=== PATIENT | female | born 1940 | race Caucasian/White ===

== ENCOUNTER 2023-08-11 11:59 | Outpatient (REF) | payer SELFPAY ==
[2023-08-11 12:12] LABS: Abs Immature Grans 0.02 10^3/uL (0.0-0.06); Absolute Basophil Count 0.03 10^3/uL (0.0-0.2); Absolute Eosinophil Count 0.22 10^3/uL (0.0-0.7); Absolute Lymphocyte Count 1.12 10^3/uL (1.2-3.4); Absolute Monocyte Count 0.45 10^3/uL (0.1-0.8); Absolute Neutrophil Count 4.46 10^3/uL (1.2-6.7); Basophils % 0.5; Eosinophils % 3.5; HCT 26.1 % (36.0-46.0); HGB 8.4 g/dL (11.2-15.7); Immature Grans % 0.3; Lymphocytes % 17.8; MCH 30.2 pg (27.0-33.0); MCHC 32.2 % (32.0-36.0); MCV 94 fL (80-95); Monocytes % 7.1; Neutrophils % 70.8; Platelet Count 379 10^3/uL (130-400); RBC 2.78 10^6/uL (3.93-5.22); RDW 14.2 % (11.7-14.6); RDW-SD 47.9 fL
[2023-08-11 12:46] LABS: ALT 18 U/L (14-59); AST 19 U/L (15-37); Albumin 2.2 g/dL (3.4-5.0); Alkaline Phosphatase 94 U/L (46-116); Anion Gap 9.3 mmol/L (3-11); BUN 17 mg/dL (7-18); Bilirubin, Total 0.7 mg/dL (0.2-1.0); CO2 26.7 mmol/L (21.0-32.0); Calcium 8.6 mg/dL (8.5-10.1); Chloride 109 mmol/L (98-107); Glucose 111 mg/dL (74-106); Magnesium 1.8 mg/dL (1.8-2.4); Potassium 4.1 mmol/L (3.5-5.1); Sodium 145 mmol/L (136-145)
== END 2023-08-11 12:00 | disposition home or self-care (01) ==
LOC: LBN 11:59
PROVIDERS: PCP Family Medicine; Visit Provider Family Medicine
DX: N18.9 Chronic kidney disease, unspecified (principal); I10 Essential (primary) hypertension; R79.89 Other specified abnormal findings of blood chemistry
CPT/HCPCS: 80053; 83735; 85025

== ENCOUNTER 2023-08-26 09:14 | Inpatient (IN) | payer MEDICARE, SELFPAY ==
[2023-08-26] VITALS (44 sets, daily range): BP systolic 110–245; BP diastolic 49–108; PULSE 63–116; RESP 12–25; TEMP 36.9–37.4; O2SAT 91–98
--- NOTE | 2023-08-26 08:45 | DI.CT_ITS ---
Exam(s) CT HEAD - STROKE PROTOCOL EXAM: CT HEAD - STROKE PROTOCOL CLINICAL HISTORY: Altered mental status. TECHNIQUE: Imaging Protocol: Axial computed tomography images with coronal and sagittal reformatted images were created and reviewed COMPARISON: No exams were available for comparison FINDINGS: Ventricles and Extra axial spaces: Normal in size and morphology for the patient's age. Hemorrhage: None. Cerebral parenchyma: There is a large right MCA distribution infarct present. There is mild mass eff ect on the right lateral ventricle. There is effacement of the sulci predominantly involving the rig ht parietal lobe. There is no midline shift. Midline shift: None. Brainstem/Cerebellum: Normal. Calvarium: Normal. Visualized Paranasal sinuses/Mastoids: Clear. Soft Tissues: Unremarkable. IMPRESSION: 1. There is a large right MCA distribution infarct with mass effect on the left right lateral ventric le and effacement of the sulci predominantly in the right parietal lobe. 2. Findings were discussed with the Ibeth Jarvis at 9:28 a.m. on 08/26/2023. RADIATION DOSE DELIVERED: Total DLP DATA REPOSITORY: All CT scans at this facility are submitted to the National Radiology Data Registry (NRDR) Dose Index Registry (DIR) with the [employer] (ACR). RADIATION OPTIMIZATION: All CT scans at this facility use at least one of these dose optimization te chniques: automated exposure control; mA and/or kV adjustment per patient size (includes targeted exa ms where dose is matched to clinical indication); or iterative reconstruction.
--- NOTE | 2023-08-26 08:45 | RT.EKG_ITS ---
APPROVED REPORT Exam: Resting ECG Reason for Exam: CVA, AMS Patient Location: E HR:88 bpm ECG Measurements Heart Rate 88 AXIS NE [id number] P [id number] QRSd 90 QRS 21 QT 390 T -64 QTc 472 Conclusion Atrial fibrillation...V-rate 65-105, irreg A-activity Consider anteroseptal infarct...Q >30mS, dimin R, V1-V2 Nonspecific repol abnormality, diffuse leads...ST dep, T flat/neg, ant/lat/inf Narrow complex rate controlled atrial fibrillation rate of 88. Normal axis. QTc within normal limit s. Left lateral ST segment depressions. No ST segment elevations. T wave flattening in aVL and inv ersion in lead III. No acute injury pattern. No prior for comparison.
--- NOTE | 2023-08-26 08:53 | W.EDPROG ---
Date of service: 08/26/23 Time of Service: 08:53 Medical Decision Making I saw this patient in conjunction with her advanced practice provider. Please see her note for complete details. In brief this is an 83 full code female with history of atrial fibrillation previously on warfarin via paramedics in the setting of acute encephalopathy. Patient was reportedly found minimally responsive this morning. She was last seen in her usual state of health last night. She is markedly hypertensive into the 200s. She has a right gaze deviation concerning for CVA for which patient will be taken emergently for CT head. GCS 9: E 2, V3, M4. Patient was normothermic on rectal temp and nontachycardic. Her fingerstick blood glucose was within normal limits. 9:30 AM Radiology noted large right MCA CVA. I attempted to call the patient's but had no answer. I left a message asking him to call the ED. I called the patient's granddaughter Shaneka: [phone]. I advised her of the patient's large stroke. She confirmed full code. She will come up within 30 minutes. I reassessed the patient. She was protecting her airway. Will defer intubation at this point in time. Given last well last night patient is not a candidate for tPA. No tonic-clonic activity to suggest benefit from EEG. 10:36 AM After receiving verbal consent from patient's granddaughter I performed rapid sequence intubation which patient tolerated well under single first-pass success. Propofol drip hung for postintubation sedation. 12:23 PM I spoke with the patient's granddaughter Mikie and the patient's son at bedside. They requested terminal extubation and that the patient be transitioned to NUTRITION SERVICES MANAGER NUTRITION SERVICES MANAGER. We have paged palliative care. Will reach out to the hospitalist team to have the patient accepted locally and coordinate with respiratory therapy is to timing for extubation and medications for comfort measures only. I will order a scopolamine patch. 1:15 PM I spoke with Dr. Little from palliative care who requested a morphine drip which I ordered at 0.5 mg/h. I completed a terminal extubation and change the patient's CODE STATUS to DNI DNR. I updated the patient's son at bedside. Patient tolerated extubation well following 2 mg of morphine and a scopolamine patch. Patient admitted to [facility]. Quality:SDOH Health Related Social Needs: No Data to Display Procedures Intubation Time out performed: Yes sedative: Etomidate Mg Given: 26 paralytic: Succinylcholine Mg Given: 130 Laryngoscope: fiberoptic video scope (Fiberoptic GlideScope) Assist Device Used: fiberoptic device ET Tube Size: 7 ET Tube Uncuffed: Yes Tube Secured Depth (cm): 21 Tube Secured Location: teeth Tube Placement Confirmation: visualized tube passing through cords, equal breath sounds bilaterally, no breath sounds over epigastrum and confirmation by capnometry Patient Tolerated Procedure: well Intubation Complications: none Additional Comments: Postintubation chest x-ray ordered. Succinylcholine used in order to monitor neuroexam. Critical Care Time Critical Care Time Critical Care Time: Yes Total Critical Care Time: 45 Attestation: Bedside management of acute CVA and consultation with consultants and interpretation of chest x-rays Discharge Plan Disposition Patient Disposition: Admit to [facility] Condition: Serious Discharge Details Clinical Impression: Acute CVA (cerebrovascular accident), Altered mental state, Pneumonia Admit Date/Time: 08/26/23 13:28 Admit Provider: Ok Calloway Attending Provider: Ok Calloway Primary Care Provider: Cortes Benitez ED Provider: Ibeth Jarvis Discharge Data Discharge Date/Time-TO BE ENTERED AT DEPARTURE: 08/26/23 14:26
--- NOTE | 2023-08-26 08:54 | W.ED.GENAD ---
Discharge Plan Disposition Patient Disposition: Admit to [facility] Condition: Serious Discharge Details Clinical Impression: Acute CVA (cerebrovascular accident), Altered mental state, Pneumonia Admit Date/Time: 08/26/23 13:28 Admit Provider: Ok Calloway Attending Provider: Ok Calloway Primary Care Provider: Cortes Benitez ED Provider: Ibeth Jarvis Discharge Data Discharge Date/Time-TO BE ENTERED AT DEPARTURE: 08/26/23 14:26 HPI General Mode of arrival: EMS. Date/Time Provider Initiated Documentation: 08/26/23 09:18. Limitations to Documentation: altered mental status. Information obtained by: EMS. HPI Narrative: 83-year-old female presents to the ER [facility] with a chief complaint of altered mental status. Report is that patient was found this morning with a right word gaze, altered mental status and decreased responsiveness from her baseline. She does have a history of chronic dementia. She is only using in the right side of her body. She normally does use both sides of her extremities. She does have an abrasion noted to the dorsal aspect of her left hand and some bruising noted to her left hip. No complaints of or reports of recent known trauma. She does have a history of atrial fibrillation, hypertension high cholesterol and dementia. She does have questionable warfarin listed on her med list. 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 BGL per EMS 140, they did get hypertensive with a systolic of 200. Related Data Home Medications Medication Instructions Recorded Confirmed calcium carbonate 600 mg-vitamin 1 tab PO DAILY 02/23/22 D3 20 mcg (800 unit) chewable tablet (Caltrate 600 plus D) cyanocobalamin (vitamin B-12) 1,000 mcg PO DAILY 02/23/22 1,000 mcg capsule furosemide 20 mg tablet 20 mg PO DAILY 02/23/22 lisinopril 40 mg tablet 40 mg PO DAILY 02/23/22 potassium chloride 20 mEq 20 meq PO DAILY 02/23/22 tablet,extended release warfarin 5 mg tablet See Rx Instructions PO DAILY 02/23/22 metoprolol tartrate 25 mg tablet 37.5 mg PO BID 05/13/22 Allergies Allergy/AdvReac Type Severity Reaction Status Date / Time donepezil Allergy Unknown Verified 11/05/22 19:56 codeine Allergy Verified 06/29/22 12:11 hydrocodone AdvReac Intermediate vomiting Verified 11/05/22 19:56 General TAMI: 2 Exam Narrative Exam Narrative: Constitutional: Nonverbal, does not respond to commands, rightward gaze, facial droop noted. Left side of her body is flaccid, left upper extremity swollen,. Appears stated age. Normal body habitus. Head: Normocephalic Eyes: Does not follow my finger with her gaze, does have a fixed gaze, ENT: Bilateral TM's WNL, External ear normal to inspection, no mastoid TTP, swelling, or erythema, Nasal turbinates WNL, no nasal discharge. Normal dentition, Posterior pharynx WNL, no exudate. Chest: RRR, Normal S1, S2, distal pulses intact. Hypertensive upon arrival. Resp: Lungs diminished, rhonchi auscultated. Abdomen: Soft, non-distended, Normoactive bowel sounds all 4 quads. Musculoskeletal: Unable to assess gait, decreased movement to her left side of her body, she does flex her right arm and squeeze my fingers when instructed with her right hand. No movement noted on her left side. Skin: No suspicious rashes or lesions. Capillary refill less than 2 sec. Neurologic: Left-sided hemiparesis, rightward gaze, facial droop, nonverbal aphasia. Hematologic/Lymphatic: Swelling and abrasion noted to left anterior hand, bruising noted to left hip from a previous hip fracture. No lymphadenopathy. Neuro General: patient confused, unable to assess gait and other (NIH greater than 30) Cognition: abnormal cognition Speech: abnormal speech Motor: movement abnormality noted and strength abnormal left upper extremity Medical Decision Making 83-year-old female [facility] with a chief complaint of altered mental status. Report is that patient was found this morning with a right vergara gaze, altered mental status and decreased responsiveness from her baseline. 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 She does have a history of chronic dementia. She is only using in the right side of her body. She normally does use both sides of her extremities. She does have an abrasion noted to the dorsal aspect of her left hand and some bruising noted to her left hip. No complaints of or reports of recent known trauma. She does have a history of atrial fibrillation, hypertension high cholesterol and dementia. She does have questionable warfarin listed on her med list. 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 BGL per EMS 140, they did get hypertensive with a systolic of 200. Stroke protocol ordered, NIH scale at least 30, Dr. Oro at Bedside for assistance in eval. 09: Spoke with Dr. Sykes radiologist, positive Right MCA CVA involving the right parietal lobe. 0932: [facility] transfer center called . Dr. Oro spoke with [facility] who confirmed full code status. 0939: [facility] called to confirm time of last known well, spoke with Aubrie DON who reports she took care of her last night at 1730 pmshe was her normal baseline mental status, this am at 0730 she was found altered and not responsive. She also confirmed no warfarin, or anticoagulation. Chest x-ray shows a right upper lobe infiltrate, concern for possible aspiration pneumonia, CT shows large right MCA infarct. CTA ordered, Cefepime 2 g IV piggyback ordered. GCS is 9 EKG was reviewed by Dr. Oro ER attending, no old EKG available for review. There is some lateral ST segment depressions. CBC shows white blood cell count of 13.10 hemoglobin 10.1 hematocrit 31.3, platelets 439, sodium 146, anion gap 12.8 BUN 19 creatinine 1.1 glucose 128 bilirubin 1.7 alk phos is 122 initial troponin less than 50 urinalysis is pending at this time Fluvid swab ordered and MRSA swab. 1007: Granddaughter and son are at the bedside discussed situation and plan of care with them they do agree to intubation if needed. Patient is sleeping at this time. Decreased mental status from previous, granddaughter states that she was with her last evening around 5 PM and she was not at her baseline mentation she reports that she was hunched over in a chair drooling which is not her normal self. Noted that patient's neurostatus has decreased GCS approximately 8, Dr. Oro at bedside to speak with patient and family regarding possible intubation. RT paged. 1029: Dr. Lowery with [id number] she reports that at this time the patient is not a thrombectomy candidate, she reports her whole frontal , parietal, and temporal lobe. At this time they do not have capacity to accept the patient at this time. Will speak with [facility]. Spoke with counter supervisor, a ICU bed may be opening up. Potentially will keep patient here since she is not a intervention candidate. Dr. Oro at bedside for intubation procedure with respiratory therapy, patient is on capnography and intubation checklist performed by Dr. Oro and staff. Please see his progress and procedure note. 1045: Spoke with [facility] transfer center they will call me back. 1049: Patient's blood pressure is much improved blood pressure is 127/51 heart rate 81 respiratory 16 ET tube 1057: [facility] Dr. Rojas with MICU discussed case and patient details with him he is declining patient transfer at this time due to lack of benefit at this point. Due to quality of life and patient not being a candidate for intervention. I will call palliative care to come and discuss options with family. 1121: Spoke with son and granddaughter of the patient with Dr. Oro to assist regarding patient case in details, we did discuss potential for quality of life and the recommendation/option to transition to comfort measures only. They verbalized understanding. Discussed different options shared decision making discussed, they would like to discuss with patient's and other family members before making a definitive decision. 1124: Spoke with [facility] trade union secretary with palliative care, who will get ahold of provider. 1203: 1mg Hydromorphone ordered, patient is biting on tube, propofol titrated up by staff internist office based only. Family at BS awaiting call from palliative care. 1229: Informed by ED community health planning director, Dr. Little will come to dept in approx 30 min for patient evaluation. Will wait that consult before contacting hospitalist. 1253: Dr. Little here at BS for discussion with family. Hospitalist paged for admission. 1325: Spoke with Dr. Calloway regarding patient case and details, he verbalizes understanding and agrees to accept patient for admission. Will place holding orders. 1330: RT at BS for extubation. Dr. Oro at BS. 1343: Patient extubated, breathing on her own at approximately 10 times/min. placed on nasal cannula. Propofol drip stopped. Awaiting transport up to floor. Patient transported up to floor by staff internist office based only. This text was generated using AppShareation system, please disregard any oddities of phrase or misspellings. Medical Records Medical records reviewed: Yes I reviewed the patient's medical records. Imaging Data Radiologic Study: Imaging: CT Scan Radiologist's impression: COMPARISON: No exams were available for comparison FINDINGS: Ventricles and Extra axial spaces: Normal in size and morphology for the patient's age. Hemorrhage: None. Cerebral parenchyma: There is a large right MCA distribution infarct present. There is mild mass effect on the right lateral ventricle. There is effacement of the sulci predominantly involving the right parietal lobe. There is no midline shift. Midline shift: None. Brainstem/Cerebellum: Normal. Calvarium: Normal. Visualized Paranasal sinuses/Mastoids: Clear. Soft Tissues: Unremarkable. IMPRESSION: 1. There is a large right MCA distribution infarct with mass effect on the left right lateral ventricle and effacement of the sulci predominantly in the right parietal lobe. 2. Findings were discussed with the Ibeth Jarvis at 9:28 a.m. on 08/26/2023. Radiologic Study #2: Imaging: X-Ray Radiologist's impression: EXAM: XR PORTABLE CHEST AP CLINICAL HISTORY: Altered mental status TECHNIQUE: 2D digital imaging was performed. COMPARISON: No exams were available for comparison FINDINGS: Exam is limited by semi upright positioning and rotation. Leads overlie the chest. There is suboptimal pulmonary inflation. LUNGS: Increased density seen in right upper lobe suspicious for pneumonia. Remainder of lung kaplan are clear. Mild underlying fibrotic changes. No pleural abnormality seen. HEART: Mildly enlarged. AORTA: Tortuous. BONES: Unremarkable for age. Soft tissues: Surgical clips left axilla. IMPRESSION: Right upper lobe infiltrate. Lab Data Lab results reviewed: Yes I reviewed the patient's lab results. Labs: 08/26/23 09:30 Blood Blood Culture - Pending 08/26/23 09:06 Blood Blood Culture - Pending Laboratory Tests Range/Units 08/26/23 09:00 WBC (4.4-10.8) 10^3/uL 13.10 H RBC (3.93-5.22) 10^6/uL 3.35 L Hgb (11.2-15.7) g/dL 10.1 L Hct (36.0-46.0) % 31.3 L MCV (80-95) fL 93 MCH (27.0-33.0) pg 30.1 MCHC (32.0-36.0) % 32.3 RDW (11.7-14.6) % 15.0 H Plt Count (130-400) 10^3/uL 439 H MPV (8.0-11.0) fL 10.3 Immature Gran % 0.8 Neutrophils % 80.2 Lymphocytes % 9.3 Monocytes % 9.2 Eosinophils % 0.1 Basophils % 0.4 Nucleated RBC % (0.0-0.3) % 0.0 Absolute Neutrophils (1.2-6.7) 10^3/uL 10.51 H Absolute Lymphocytes (1.2-3.4) 10^3/uL 1.22 Absolute Monocytes (0.1-0.8) 10^3/uL 1.21 H Absolute Eosinophils (0.0-0.7) 10^3/uL 0.01 Absolute Basophils (0.0-0.2) 10^3/uL 0.05 PT (9.1-11.1) sec 12.2 H INR (0.9-1.1) 1.2 H APTT (23.6-32.8) sec 31.0 VBG Lactate (0.6-1.4) mmol/L 1.4 Sodium (136-145) mmol/L 146 H Potassium (3.5-5.1) mmol/L 3.5 Chloride (98-107) mmol/L 107 Carbon Dioxide (21.0-32.0) mmol/L 26.2 Anion Gap (3-11) mmol/L 12.8 H BUN (7-18) mg/dL 19 H Creatinine (0.55-1.02) mg/dL 1.1 H Est GFR (CKD-EPI 2020) (mL/min/1.73m2) 49.86 Glucose (74-106) mg/dL 128 H Calcium (8.5-10.1) mg/dL 9.5 Magnesium (1.8-2.4) mg/dL 2.0 Total Bilirubin (0.2-1.0) mg/dL 1.7 H AST (15-37) U/L 30 ALT (14-59) U/L 24 Alkaline Phosphatase (46-116) U/L 122 H Troponin I (< or =60) ng/L < 50 Total Protein (6.4-8.2) g/dL 8.1 Albumin (3.4-5.0) g/dL 2.7 L Quality:SDOH Health Related Social Needs: No Data to Display Critical Care Time Critical Care Time Critical Care Time: Yes Total Critical Care Time: 60 Attestation: I spent greater than 35 minutes addressing this patient's acute life threatening illness. This time was spent engaged in actions directly related to the patient's care. Failure to initiate these interventions would have likely resulted in clinically significant or life threatening deterioration in the patients condition. PFSH All Active Problems (Updated 08/26/23 @ 14:25 by VERONICA HODGE) Pneumonia (Acute) Altered mental state (Acute) Acute CVA (cerebrovascular accident) (Acute) Acute right MCA stroke (Acute) Pain, foot (Acute) Nail dystrophy (Acute) Dementia (Chronic) Osteoporosis (Chronic) Hypercholesteremia (Acute) HTN (hypertension) (Chronic) Atrial fibrillation (Chronic) Social History Smoking/Tobacco Use Status: Never Smoking risk assessment performed?: Yes Alcohol Intake: never Housing: senior care
[2023-08-26 09:16] LABS: Abs Immature Grans 0.11 10^3/uL (0.0-0.06); Absolute Basophil Count 0.05 10^3/uL (0.0-0.2); Absolute Eosinophil Count 0.01 10^3/uL (0.0-0.7); Absolute Lymphocyte Count 1.22 10^3/uL (1.2-3.4); Absolute Neutrophil Count 10.51 10^3/uL (1.2-6.7); Basophils % 0.4; Eosinophils % 0.1; HCT 31.3 % (36.0-46.0); HGB 10.1 g/dL (11.2-15.7); Immature Grans % 0.8; Lymphocytes % 9.3; MCH 30.1 pg (27.0-33.0); MCHC 32.3 % (32.0-36.0); MCV 93 fL (80-95); MPV 10.3 fL (8.0-11.0); Monocytes % 9.2; Neutrophils % 80.2; Platelet Count 439 10^3/uL (130-400); RBC 3.35 10^6/uL (3.93-5.22); RDW-SD 51.4 fL
[2023-08-26 09:17] LABS: Lactate 1.4 mmol/L (0.6-1.4)
[2023-08-26 09:19] LABS: Absolute Monocyte Count 1.21 10^3/uL (0.1-0.8)
--- NOTE | 2023-08-26 09:24 | DI.RAD_ITS ---
Exam(s) XR PORTABLE CHEST AP EXAM: XR PORTABLE CHEST AP CLINICAL HISTORY: Altered mental status TECHNIQUE: 2D digital imaging was performed. COMPARISON: No exams were available for comparison FINDINGS: Exam is limited by semi upright positioning and rotation. Leads overlie the chest. There is subopti mal pulmonary inflation. LUNGS: Increased density seen in right upper lobe suspicious for pneumonia. Remainder of lung kaplan are clear. Mild underlying fibrotic changes. No pleural abnormality seen. HEART: Mildly enlarged. AORTA: Tortuous. BONES: Unremarkable for age. Soft tissues: Surgical clips left axilla. IMPRESSION: Right upper lobe infiltrate. DATA REPOSITORY: RADIATION DOSE DELIVERED:
[2023-08-26 09:29] LABS: INR 1.2 (0.9-1.1); Prothrombin Time 12.2 sec (9.1-11.1)
[2023-08-26 09:47] LABS: ALT 24 U/L (14-59); AST 30 U/L (15-37); Albumin 2.7 g/dL (3.4-5.0); Alkaline Phosphatase 122 U/L (46-116); Anion Gap 12.8 mmol/L (3-11); BUN 19 mg/dL (7-18); Bilirubin, Total 1.7 mg/dL (0.2-1.0); CO2 26.2 mmol/L (21.0-32.0); CREATININE 1.1 mg/dL (0.55-1.02); Calcium 9.5 mg/dL (8.5-10.1); Chloride 107 mmol/L (98-107); Estimated GFR 49.86 (mL/min/1.73m2); Glucose 128 mg/dL (74-106); Potassium 3.5 mmol/L (3.5-5.1); Sodium 146 mmol/L (136-145); Total Protein 8.1 g/dL (6.4-8.2); Troponin I < 50 ng/L (< or =60)
--- NOTE | 2023-08-26 10:00 | DI.RAD_ITS ---
Exam(s) XR PORTABLE CHEST AP POST LINE EXAM: XR PORTABLE CHEST AP POST LINE CLINICAL HISTORY: Postintubation TECHNIQUE: 2D digital imaging was performed of the chest. Two images were obtained. AP views were obtained. COMPARISON: CR XR PORTABLE CHEST AP from 08/26/2023 FINDINGS: MEDIASTINUM: Normal. HEART: Normal. PULMONARY VASCULATURE: Normal. LUNGS: Clear. PLEURAL SPACE: No pleural effusion or pneumothorax. BONE:Within normal limits for the patient's age. OTHER FINDINGS:The tip of the endotracheal tube is at the thoracic inlet 7 cm from the ami. The t ip of the nasogastric tube is seen in the distal esophagus. It should be advanced into the stomach. IMPRESSION: 1. No acute pulmonary findings. 2. The endotracheal tube tip is at the thoracic inlet well above the ami. 3. The nasogastric tube tip is in the distal esophagus and should be advanced into the stomach. DATA REPOSITORY: RADIATION DOSE DELIVERED:
[2023-08-26 10:03] LABS: Bilirubin Moderate (Negative); Blood Trace-lysed (Negative); Clarity Cloudy (Clear); Glucose Negative (Negative); Ketones 15 mg/dL (Negative); Leukocyte Esterase Trace (Negative); Nitrite Negative (Negative); Specific Gravity >= 1.030 (1.005-1.025); Urobilinogen >=8.0 mg/dL (Up to 0.2)
[2023-08-26 10:15] LABS: Bacteria Many HPF (Negative); C & S Indicated? Yes; Casts Negative LPF (Negative); Crystals Many Amorphous HPF (Negative); Epithelial Cells Rare HPF (Negative); Mucus Heavy (Negative); Other Cells Negative (Negative)
[2023-08-26 10:42] LABS: COVID-19 PCR Negative (Negative); Influenza A PCR Negative (Negative); Influenza B PCR Negative (Negative); RSV PCR Negative (Negative)
[2023-08-26] MEDS: Succinylcholine 100 MG/5 ML SYR 130 MG IVP (10:45)
--- NOTE | 2023-08-26 10:45 | DI.RAD_ITS ---
Exam(s) XR PORTABLE CHEST AP POST LINE EXAM: XR PORTABLE CHEST AP POST LINE CLINICAL HISTORY: Confirm tube TECHNIQUE: 2D digital imaging was performed of the chest. One image was obtained. An AP view was ob tained. COMPARISON: CR XR PORTABLE CHEST AP POST LINE from 08/26/2023 FINDINGS: MEDIASTINUM: Normal. HEART: Normal. PULMONARY VASCULATURE: Normal. LUNGS: Clear. PLEURAL SPACE: No pleural effusion or pneumothorax. BONE:Within normal limits for the patient's age. OTHER FINDINGS:The nasogastric tube has been advanced into the stomach. The endotracheal tube tip is in good position. It lies 5 cm above the ami. IMPRESSION: Both the endotracheal and nasogastric tubes are in acceptable positions. DATA REPOSITORY: RADIATION DOSE DELIVERED:
[2023-08-26] MEDS: Etomidate 20 MG/10 ML VIAL 26 MG IVP (10:46)
[2023-08-26 10:47] LABS: Source Nasopharynx
[2023-08-26] MEDS: Normal Saline 500 ML IV (10:47)
[2023-08-26] MEDS: CEFEPIME 1 GM in Normal Saline 50 ML IVPB (10:47)
[2023-08-26] MEDS: HYDROmorphone 2 MG/ML SYR (10:47)
[2023-08-26] MEDS: PROPOFOL 1,000 MG/100 ML BTL 2.55 MG IVPB (10:53)
--- NOTE | 2023-08-26 11:04 | NUR.NOTE ---
Nursing Note: Intubation started at 1029 1029 26mg Etoimdate 1029 130mg Succinylcholine 1031 intubated.
[2023-08-26 11:07] LABS: BE 2 mmol/L (-2-3); HCO3 25 mmol/L (22-26); pCO2 36 mmHg (35-45); pH 7.46 (7.35-7.45); pO2 84 mmHg (80-105); sO2 98 % (95-98); tCO2 24 mmol/L (23-27)
[2023-08-26 11:08] LABS: FIO2 35 %; Site Right Radial
[2023-08-26] MEDS: Omnipaque 350 MG/ML 100 ML BTL IJ (11:10)
[2023-08-26] MEDS: HYDROmorphone 2 MG/ML SYR 1 MG IVP (12:05)
[2023-08-26 12:39] LABS: MRSA PCR Negative (Negative)
[2023-08-26] MEDS: Scopolamine 1 MG/3 DAYS PATCH TD (13:02)
--- NOTE | 2023-08-26 13:25 | W.PM.HP.N ---
Date of service: 08/26/23 Time of Service: 13:25 Assessment and Plan Assessment and plan (1) Acute right MCA stroke: Status: Acute Assessment and plan: unclear of onset of symptoms, after 2 neurology consultations, medical management only with no indication for transfer. palliative consult and patient will now be DNR/DNI with comfort focused care, See Manjinder Little MD consult report. continue morphine drip initiated in the ED, adjust as needed. discussed with Dr Calloway History of Present Illness History of Present Illness Chief Complaint: left sided hemiparesis, altered mental status Narrative: Presents to the emergency department with altered mental status unclear when last seen normal but suspect yesterday. Her workup in the emergency department did show right MCA stroke with left hemiparesis. Patient has severe dementia at baseline. Other workup was unremarkable her case was discussed with neurology at [facility] and [facility] and patient is not a candidate for any surgical intervention and out of the window for thrombolytics. Palliative was consulted and plan is to keep patient here for end-of-life care she will be transition to SPRAY TECHNICIAN placed on a morphine drip and hospitalist services contacted for admission Review of Systems All systems reviewed & are unremarkable except as noted in HPI and below (unable to assess d/t AMS) PFSH All Active Problems (Updated 08/26/23 @ 14:25 by VERONICA HODGE) Pneumonia (Acute) Altered mental state (Acute) Acute CVA (cerebrovascular accident) (Acute) Acute right MCA stroke (Acute) Pain, foot (Acute) Nail dystrophy (Acute) Dementia (Chronic) Osteoporosis (Chronic) Hypercholesteremia (Acute) HTN (hypertension) (Chronic) Atrial fibrillation (Chronic) Social History Smoking/Tobacco Use Status: Never Smoking risk assessment performed?: Yes Alcohol Intake: never Housing: assisted Meds Allergies and Home Medications Allergies Allergy/AdvReac Type Severity Reaction Status Date / Time donepezil Allergy Unknown Verified 11/05/22 19:56 codeine Allergy Verified 06/29/22 12:11 hydrocodone AdvReac Intermediate vomiting Verified 11/05/22 19:56 Home Medications Medication Instructions Recorded Confirmed Type calcium carbonate 600 mg-vitamin 1 tab PO DAILY 02/23/22 History D3 20 mcg (800 unit) chewable tablet (Caltrate 600 plus D) cyanocobalamin (vitamin B-12) 1,000 mcg PO DAILY 02/23/22 History 1,000 mcg capsule furosemide 20 mg tablet 20 mg PO DAILY 02/23/22 History lisinopril 40 mg tablet 40 mg PO DAILY 02/23/22 History potassium chloride 20 mEq 20 meq PO DAILY 02/23/22 History tablet,extended release warfarin 5 mg tablet See Rx Instructions PO DAILY 02/23/22 History metoprolol tartrate 25 mg tablet 37.5 mg PO BID 05/13/22 History Exam Const General: comfortable and no acute distress Nutritional Appearance: overweight Orientation: obtunded HENSC Head: normal to inspection Resp Effort & Inspection: normal respiratory effort (Even and unlabored) Skin General skin exam: other (Pale warm and dry) Neuro General: patient obtunded Results Labs 08/26/23 09:00 08/26/23 09:00 Labs: Laboratory Results - last 24 hr 08/26/23 08/26/23 08/26/23 09:00 09:45 09:55 WBC 13.10 H RBC 3.35 L Hgb 10.1 L Hct 31.3 L MCV 93 MCH 30.1 MCHC 32.3 RDW 15.0 H Plt Count 439 H MPV 10.3 Immature Gran % 0.8 Neutrophils % 80.2 Lymphocytes % 9.3 Monocytes % 9.2 Eosinophils % 0.1 Basophils % 0.4 Nucleated RBC % 0.0 Absolute Neutrophils 10.51 H Absolute Lymphocytes 1.22 Absolute Monocytes 1.21 H Absolute Eosinophils 0.01 Absolute Basophils 0.05 PT 12.2 H INR 1.2 H APTT 31.0 ABG Sample Site ABG pH ABG pCO2 ABG pO2 ABG HCO3 ABG Total CO2 ABG O2 Saturation ABG Base Excess VBG Lactate 1.4 FiO2 Sodium 146 H Potassium 3.5 Chloride 107 Carbon Dioxide 26.2 Anion Gap 12.8 H BUN 19 H Creatinine 1.1 H Est GFR (CKD-EPI 2020) 49.86 Glucose 128 H Calcium 9.5 Magnesium 2.0 Total Bilirubin 1.7 H AST 30 ALT 24 Alkaline Phosphatase 122 H Troponin I < 50 Total Protein 8.1 Albumin 2.7 L Urine Color Yellow Urine Clarity Cloudy Urine pH 5.0 Ur Specific [place] >= 1.030 H Urine Protein 30 H Urine Ketones 15 H Urine Blood Trace-lysed H Urine Nitrite Negative Urine Bilirubin Moderate H Urine Urobilinogen >=8.0 H Ur Leukocyte Esterase Trace H Urine RBC 3-5 H Urine WBC 5-10 Ur Epithelial Cells Rare Urine Crystals Many Amorphous Urine Bacteria Many Urine Casts Negative Urine Mucus Heavy Urine Other Negative Ur Culture Indicated? Yes Urine Glucose Negative COVID-19 Source Nasopharynx SARS-CoV-2 (PCR) Negative Influenza Type A (PCR) Negative Influenza Type B (PCR) Negative RSV (PCR) Negative MRSA (TEM-PCR) 08/26/23 08/26/23 11:00 11:02 WBC RBC Hgb Hct MCV MCH MCHC RDW Plt Count MPV Immature Gran % Neutrophils % Lymphocytes % Monocytes % Eosinophils % Basophils % Nucleated RBC % Absolute Neutrophils Absolute Lymphocytes Absolute Monocytes Absolute Eosinophils Absolute Basophils PT INR APTT ABG Sample Site Right Radial ABG pH 7.46 H ABG pCO2 36 ABG pO2 84 ABG HCO3 25 ABG Total CO2 24 ABG O2 Saturation 98 ABG Base Excess 2 VBG Lactate FiO2 35 Sodium Potassium Chloride Carbon Dioxide Anion Gap BUN Creatinine Est GFR (CKD-EPI 2020) Glucose Calcium Magnesium Total Bilirubin AST ALT Alkaline Phosphatase Troponin I Total Protein Albumin Urine Color Urine Clarity Urine pH Ur Specific [place] Urine Protein Urine Ketones Urine Blood Urine Nitrite Urine Bilirubin Urine Urobilinogen Ur Leukocyte Esterase Urine RBC Urine WBC Ur Epithelial Cells Urine Crystals Urine Bacteria Urine Casts Urine Mucus Urine Other Ur Culture Indicated? Urine Glucose COVID-19 Source SARS-CoV-2 (PCR) Influenza Type A (PCR) Influenza Type B (PCR) RSV (PCR) MRSA (TEM-PCR) Negative Last Vital Signs Temp 37.4 C 08/26/23 09:03 Pulse 70 08/26/23 12:16 Resp 14 08/26/23 12:16 BP 110/52 L 08/26/23 12:16 Pulse Ox 98 08/26/23 11:17 Time Spent Time spent with Patient: 40-54 minutes Time was spent: preparing to see the patient(eg.review tests), obtaining and/or reviewing separately otained hiistory, ordering medications,tests, procedures and indepentently interpreting results
[2023-08-26] MEDS: MORPHine 250 MG in Normal Saline 245 ML IV (14:00)
--- NOTE | 2023-08-26 14:06 | NUR.NOTE ---
Nursing Note:This RN spoke to pharmacy about the morphine that was brought in a premixed bag. RN asked if it needed to be on a CADD pump. Pharmacy stated that it was not ordered like that. RN asked if there were lock boxes for the medication to be hung in. Pharmacist told this RN that this facility did not have lock boxes and that it was to just go on a regular pump. This RN reitterated that she felt that it was not safe for this medication to go into a room where there are other people where this medication is accessible. RN asked if labor and delivery had lock boxes for the epidurals and this RN was told by the pharmacist that they do not have lock boxes for the epidurals. Nurse practitioner and doctor present today were both made aware that this medication was going to be hung on the room without being in a locked box or on a CADD pump.
[2023-08-26] MEDS: MORPHine 10 MG/ML VIAL (14:16)
--- NOTE | 2023-08-26 15:47 | CHAPLAIN ---
I spent time with Bria, her son Jarred, and granddaughter Shaneka, in the ED this morning when Bria was brought in from & for stroke. Bria has dementia and up until a few weeks ago lived at home with her near [place]. Her is her second , and not Jarred's father, although he and Bria have been for more than 40 years. Bria was admitted to [facility] after a fall, then transferred to & for rehab, a few weeks ago. Shaneka and Jarred have visited her there and she interacted with them, although didn't say much according to Shaneka. Shaneka discovered her slumped over in a chair at her last visit. 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 Bria was full code, so was intubated with the plan of transporting her to [facility] or [facility]. She was not accepted at either and family decided to extubate her and support her with comfort measures. Dr. Sammie Little provided a Palliative consult in the ED with Shaneka and Jarred. Bria was admitted to room 218. Bria' daughter, (Shaneka's mom, Jarred's sister) is flying in from [place] and will be in [place] [facility]. All family members have been in agreement with the comfort measures plan. Bria' eldest son, Pedro, in 2016. I will continue to visit.
--- NOTE | 2023-08-26 15:54 | PHA.REVIEW2 ---
Pharmacy Admission Review Admission Clinical Review Admission Pharmacy Review: Acute right MCA stroke (Acute) donepezil Allergy (Unknown, Verified 11/05/22 19:56) codeine Allergy (Verified 06/29/22 12:11) hydrocodone Adverse Reaction (Intermediate, Verified 11/05/22 19:56) vomiting Resuscitation Status DNR/DNI Height 5 ft 6 in Weight 83.6 kg Comments Comments/Follow Ups: Per H+P patient is transitioning to PATENT PROSECUTION PARALEGAL. Currently has morphine drip 1mg/mL set at 0.5mg/hr Pharmacy Admission Review Renal Dosing Renal Dosing: BUN 19 mg/dL (7-18) H 08/26/23 09:00 Creatinine 1.1 mg/dL (0.55-1.02) H 08/26/23 09:00 Medications needing adjustments: Reviewed (CrCl 42.16 mL/min) Anticoagulation Anticoagulation: Hgb 10.1 g/dL (11.2-15.7) L 08/26/23 09:00 Hct 31.3 % (36.0-46.0) L 08/26/23 09:00 Plt Count 439 10^3/uL (130-400) H 08/26/23 09:00 INR 1.2 (0.9-1.1) H 08/26/23 09:00 Creatinine 1.1 mg/dL (0.55-1.02) H 08/26/23 09:00 DVT Prophylaxis: Reviewed Opiate Usage Evaluate Pain Scale/Pains Meds: Reviewed (Morphine drip currently at 0.5mg/hr) Scheduled Bowel Reg ordered if on Opiates?: No Relevant Labs Relevant Labs: Sodium 146 mmol/L (136-145) H 08/26/23 09:00 Potassium 3.5 mmol/L (3.5-5.1) 08/26/23 09:00 Chloride 107 mmol/L (98-107) 08/26/23 09:00 Magnesium 2.0 mg/dL (1.8-2.4) 08/26/23 09:00 Electrolytes, C-Reactive P, ESR: Reviewed Cardiac Review Cardiac Review: Troponin I Cancelled 08/26/23 11:53 BP, HR, EF%: Reviewed QTc Review QTc: Reviewed (472 from 08/26/23) IV to PO Switch IV Medications: Reviewed Home Meds Home Med List reviewed: Reviewed Current Meds Current Medication Order Review: Reviewed Comments Comments/Follow Ups: Per H+P patient is transitioning to PATENT PROSECUTION PARALEGAL. Currently has morphine drip 1mg/mL set at 0.5mg/hr
[2023-08-26] MEDS: Glycopyrrolate 0.2 MG/1 ML VIAL 0.1 MG IVP ×2 (17:58→21:47)
--- NOTE | 2023-08-26 20:42 | W.PALLCONSUL ---
Date of service: 08/26/23 Time of Service: 13:00 History of Present Illness History of Present Illness Chief Complaint: large right sided ischemic stroke, goals of care Narrative: Bria Figueredo is an 83 yo woman who has been residing at [facility] for a few weeks now after a series of events leading to a decline in her health. Over the last 5-6 weeks, according to her granddaughter, she has fallen and broken her left hip; she had a gi bleed and was taken off her coumadin; she had a complicated UTI; she was hospitalized at [facility] in [place], from where she was sent to the Rehab in hopes of her being able to possibly return to her home that she shares with her . She had not been in very good health since her son Pedro in 2016. She never recovered from the shock of his , but was still able to live at home with her elderly until 5-6 weeks ago. Her decline over the last 24-36 hours has been very precipitous. She was able to have a conversation with her granddaughter and eat food and interact as of Wednesday 08/23. Another family member visited her on Thursday 08/24 and said she was not herself, she was not speaking right, she was slumped in her chair. Today, her granddaughter (who is her DPOA) found her grandmother in a very poor state. Her granddaughter reported to me that her grandmother was in a chair, with an untouched tray of food beside her, her head drooping, thick saliva on her chest. She was not attended by a [facility] staff member. It appeared she had been in the same position for a while. They then transferred Bria to the [facility] ER. In the ER, they imaged her brain. Her brain CT was acutely abnormal, with a large area of ischemia stemming from an embolic stroke. Note that Mrs Figueredo has known afib and was off her blood thinners due to her recent GI bleed. ER staff consulted with both [facility] and [facility] about Mrs Figueredo's condition. Prior to my arrival, she was intubated in anticipation of transfer. Her granddaughter, her DPOA, made it known that she would not want this. She spoke to other family members, including Mr Figueredo, Bria's , who agreed. She was intubated during my exam/visit with her, her son Jarred, her granddaughter and the hospital chain offbearer, Gill Garza. She could not speak for herself. She was on a propofol drip and was minimally responsive. She did not show any signs of pain with this sedation. Consults Consult date: 08/26/23 Requesting physician: Ibeth Jarvis Assessment and Plan Assessment and plan (1) Acute CVA (cerebrovascular accident): Status: Acute Assessment and plan: Due to Mrs Figueredo's recent GI bleed, she was off her blood thinners for her chronic afib. She unfortunately experienced a stroke, which family suspect was present for more than 12 hours before she received diagnostics and treatment. Count includes the [facility] hospitals advised that due to her large area of ischemia, her recovery chance is nil. Per ER staff, they recommended comfort measures. Family agreed to this plan. I asked ER staff to extubate as soon as they were able. Also recommended that they start a low dose morphine drip at 0.5 mg/hr for patient comfort. I will see her again tomorrow to ensure that she is still comfortable. I discussed Mrs Figueredo's care both with ER staff and with hospitalist SPRING TACKER who admitted her. We did discuss alternatives to her being admitted; family is unable to care for her in her very debilitated state. They do not feel she would be safe returning to [facility] and either. (2) Acute right MCA stroke: Status: Acute (3) Altered mental state: Status: Acute (4) Dementia: Status: Chronic (5) Atrial fibrillation: Status: Chronic (6) Embolic stroke: Status: Acute (7) long term resident: Status: Acute (8) Fracture of left hip: Status: Acute (9) Recurrent gastrointestinal hemorrhage: Status: Acute Review of Systems Unobtainable due to endotracheal tube COUNT INCLUDES THE [facility] All Active Problems (Updated 08/26/23 @ 20:57 by Sammie Little MD) Fracture of left hip (Acute) Jul 2023 long term resident (Acute) Embolic stroke (Acute) Recurrent gastrointestinal hemorrhage (Acute) recent bleed, Jul 2023, at [facility] Pneumonia (Acute) Altered mental state (Acute) Acute CVA (cerebrovascular accident) (Acute) Acute right MCA stroke (Acute) Pain, foot (Acute) Nail dystrophy (Acute) Dementia (Chronic) Osteoporosis (Chronic) Hypercholesteremia (Acute) HTN (hypertension) (Chronic) Atrial fibrillation (Chronic) Family History (Updated 08/26/23 @ 20:58 by Sammie Little MD) Son No problems noted. Son Cancer Daughter No problems noted. Social History (Updated 08/26/23 @ 21:01 by Sammie Little MD) Smoking/Tobacco Use Status: Never Smoking risk assessment performed?: Yes Alcohol Intake: never Drug use: Never Caregiver/Support person: Yes [facility] Number of Children: 2 Education Level: high school Do you need help understanding health information?: Always current occupation: retired [employer] Current gender identity: female What is your relationship status?: How often do you get together with friends or relatives?: three or more times per week Panel score (0-1 are the most socially isolated patients): 2 What type of physical activity do you participate in: assisted ambulation Duration: < 15 minutes/day Additional Social history: Family did not want her to return to [facility] and due to severe concerns re: quality of care available there. Exam Const General: comfortable and no acute distress Nutritional Appearance: overweight Orientation: obtunded HENMT Head: normal to inspection Resp Effort & Inspection: normal respiratory effort (Even and unlabored) Skin General skin exam: other (Pale warm and dry) Neuro General: patient obtunded Results Last Vital Signs Temp 98.4 F 08/26/23 14:35 Pulse 85 08/26/23 14:35 Resp 18 08/26/23 14:35 BP 155/72 H 08/26/23 14:35 Pulse Ox 91 L 08/26/23 14:35 Labs 08/26/23 09:00 08/26/23 09:00 Labs: Laboratory Results - last 24 hr 08/26/23 08/26/23 08/26/23 09:00 09:45 09:55 WBC 13.10 H RBC 3.35 L Hgb 10.1 L Hct 31.3 L MCV 93 MCH 30.1 MCHC 32.3 RDW 15.0 H Plt Count 439 H MPV 10.3 Immature Gran % 0.8 Neutrophils % 80.2 Lymphocytes % 9.3 Monocytes % 9.2 Eosinophils % 0.1 Basophils % 0.4 Nucleated RBC % 0.0 Absolute Neutrophils 10.51 H Absolute Lymphocytes 1.22 Absolute Monocytes 1.21 H Absolute Eosinophils 0.01 Absolute Basophils 0.05 PT 12.2 H INR 1.2 H APTT 31.0 ABG Sample Site ABG pH ABG pCO2 ABG pO2 ABG HCO3 ABG Total CO2 ABG O2 Saturation ABG Base Excess VBG Lactate 1.4 FiO2 Sodium 146 H Potassium 3.5 Chloride 107 Carbon Dioxide 26.2 Anion Gap 12.8 H BUN 19 H Creatinine 1.1 H Est GFR (CKD-EPI 2020) 49.86 Glucose 128 H Calcium 9.5 Magnesium 2.0 Total Bilirubin 1.7 H AST 30 ALT 24 Alkaline Phosphatase 122 H Troponin I < 50 Total Protein 8.1 Albumin 2.7 L Urine Color Yellow Urine Clarity Cloudy Urine pH 5.0 Ur Specific [place] >= 1.030 H Urine Protein 30 H Urine Ketones 15 H Urine Blood Trace-lysed H Urine Nitrite Negative Urine Bilirubin Moderate H Urine Urobilinogen >=8.0 H Ur Leukocyte Esterase Trace H Urine RBC 3-5 H Urine WBC 5-10 Ur Epithelial Cells Rare Urine Crystals Many Amorphous Urine Bacteria Many Urine Casts Negative Urine Mucus Heavy Urine Other Negative Ur Culture Indicated? Yes Urine Glucose Negative COVID-19 Source Nasopharynx SARS-CoV-2 (PCR) Negative Influenza Type A (PCR) Negative Influenza Type B (PCR) Negative RSV (PCR) Negative MRSA (TEM-PCR) 08/26/23 08/26/23 08/26/23 11:00 11:02 11:53 WBC RBC Hgb Hct MCV MCH MCHC RDW Plt Count MPV Immature Gran % Neutrophils % Lymphocytes % Monocytes % Eosinophils % Basophils % Nucleated RBC % Absolute Neutrophils Absolute Lymphocytes Absolute Monocytes Absolute Eosinophils Absolute Basophils PT INR APTT ABG Sample Site Right Radial ABG pH 7.46 H ABG pCO2 36 ABG pO2 84 ABG HCO3 25 ABG Total CO2 24 ABG O2 Saturation 98 ABG Base Excess 2 VBG Lactate FiO2 35 Sodium Potassium Chloride Carbon Dioxide Anion Gap BUN Creatinine Est GFR (CKD-EPI 2020) Glucose Calcium Magnesium Total Bilirubin AST ALT Alkaline Phosphatase Troponin I Cancelled Total Protein Albumin Urine Color Urine Clarity Urine pH Ur Specific [place] Urine Protein Urine Ketones Urine Blood Urine Nitrite Urine Bilirubin Urine Urobilinogen Ur Leukocyte Esterase Urine RBC Urine WBC Ur Epithelial Cells Urine Crystals Urine Bacteria Urine Casts Urine Mucus Urine Other Ur Culture Indicated? Urine Glucose COVID-19 Source SARS-CoV-2 (PCR) Influenza Type A (PCR) Influenza Type B (PCR) RSV (PCR) MRSA (TEM-PCR) Negative Imaging Additional studies: head CT grossly abnormal with large area of ischemia due to embolic stroke
[2023-08-26] MEDS: Normal Saline Flush 10 ML SYR IVP ×2 (21:47→22:42)
[2023-08-26] MEDS: LORazepam 2 MG/ML VIAL 1 MG IVP (22:42)
[2023-08-27] MEDS: Glycopyrrolate 0.2 MG/1 ML VIAL 0.1 MG IVP (02:36)
[2023-08-27] MEDS: Normal Saline Flush 10 ML SYR IVP ×3 (02:37→19:43)
--- NOTE | 2023-08-27 14:29 | PDOC.CMIN ---
Date of service: 08/27/23 Time of Service: 14:29 Care Management Initial Assmt Initial Assessment REASON FOR HOSPITALIZATION:: CVA PREVIOUS FUNCTIONAL STATUS/SOCIAL/FAMILY SUPPORTS:: Bria lives in a single family home in [place], [place]. with her Madi. They have 8 children and many grandchildren. Bria was recently hospitalized at [facility] after she sustained a fractured hip. She was then transferred to [facility] for short term rehab. She had been there for about 2 weeks until yesterday when she suffered a large embolic stroke. The decision was made to make her comfort measures and for her to remain at [facility] for end of life care. CURRENT FUNCTIONAL STATUS:: Bria was lying in bed when CM met with her. She appeared very comfortable and peaceful. Bria is on a morphine drip and is non responsive at this time. Her son, daughter, and granddaughter (Shaneka, who is her DPOA) were present. They informed CM that they were pleased with the care that she is receiving and the fact that she appears so much more comfortable today than yesterday. They asked about medicated changes that might account for the change in her comfort level. Yesterday Bria was intubated and was on a Propofol drip and today she is receiving morphine via continuous infusion. CM explained that morphine is an analgesic which will help to keep her comfortable. ADVANCE DIRECTIVES:: COLST on file - DNR/DNI Has patient been provided with info about the portal/API?: Yes Did the patient sign up for the portal?: No CODE STATUS:: DNR/DNI INSURANCE COVERAGE / FINANCIAL ISSUES:: Medicare Modular [employer]s supplement CURRENT HOME/COMMUNITY SERVICES/EQUIPMENT:: resides in a senior care facility PRIMARY CARE PHYSICIAN:: [facility] POTENTIAL DISCHARGE NEEDS:: end of life care PLAN:: Bria will remain at [facility] for end of life care. She is on a morphine drip at 0.5mg/hr and appears very comfortable. Her family is by her side to offer comfort and support. CM will follow and continue to support Bria and her family. PFSH All Active Problems (Updated 08/26/23 @ 20:57 by Sammie Little MD) Fracture of left hip (Acute) Jul 2023 [facility] resident (Acute) Embolic stroke (Acute) Recurrent gastrointestinal hemorrhage (Acute) recent bleed, Jul 2023, at [facility] Pneumonia (Acute) Altered mental state (Acute) Acute CVA (cerebrovascular accident) (Acute) Acute right MCA stroke (Acute) Pain, foot (Acute) Nail dystrophy (Acute) Dementia (Chronic) Osteoporosis (Chronic) Hypercholesteremia (Acute) HTN (hypertension) (Chronic) Atrial fibrillation (Chronic) Family History (Updated 08/26/23 @ 20:58 by Sammie Little MD) Son No problems noted. Son Cancer Daughter No problems noted. Social History (Updated 08/26/23 @ 21:01 by Sammie Little MD) Smoking/Tobacco Use Status: Never Smoking risk assessment performed?: Yes Alcohol Intake: never Drug use: Never Caregiver/Support person: Yes Housing: [facility] Number of Children: 2 Education Level: high school Do you need help understanding health information?: Always current occupation: retired [employer] Current gender identity: female What is your relationship status?: How often do you get together with friends or relatives?: three or more times per week Panel score (0-1 are the most socially isolated patients): 2 What type of physical activity do you participate in: assisted ambulation Duration: < 15 minutes/day Additional Social history: Family did not want her to return to [facility] due to severe concerns re: quality of care available there. SDOH(Care Management) Screening Will the Patient Participate in the Screening?: Unable to obtain
--- NOTE | 2023-08-27 16:08 | CHAPLAIN ---
Bria remains unresponsive and comfortable. Her family has been visiting and they said she appears comfortable to them. Bria is Confucianism and Fr. Irby visited this morning and offered the anointing of the sick and last rites. I've been checking in with the family through out the day. They are grateful that Bria is comfortable and appreciative of the care she is receiving.
--- NOTE | 2023-08-27 17:10 | W.PALPGNOTE ---
Date of service: 08/27/23 Time of Service: 17:10 Assessment and Plan Assessment and plan (1) Comfort measures only status: Status: Acute Assessment and plan: Bria is on GRANITE BLOCK PAVER with a low dose MS drip running. She has family at the bedside. She appears comfortable. Her family feels she is comfortable. No grimacing, furrowed brows, moaning during the visit. Continue comfort-focused care. Titrate morphine drip as needed. Continue PRN lorazepam. She will remain here at [facility] for end of life care. (2) Acute CVA (cerebrovascular accident): Status: Acute Assessment and plan: This is the reason for her decline and transition to GRANITE BLOCK PAVER. (3) Acute right MCA stroke: Status: Acute (4) Altered mental state: Status: Acute (5) Dementia: Status: Chronic (6) Atrial fibrillation: Status: Chronic (7) Embolic stroke: Status: Acute (8) intermediate resident: Status: Acute (9) Fracture of left hip: Status: Acute (10) Recurrent gastrointestinal hemorrhage: Status: Acute Subjective Subjective Interval history since last seen: Bria was seen for Palliative f/u. She was seen by Palliative care earlier on this admission. She is on GRANITE BLOCK PAVER. Her daughter, granddaughter and great-granddaughter were present for the visit. She is resting comfortably in bed. She appears relaxed and comfortable. She has a morphine drip running at 0.5 mg/hr. She does not appear to be in any distress. Her family feels that she is comfortable. Exam Narrative Exam Narrative: Frail elderly female unresponsive laying in bed no sign of distress respirations are even and unlabored skin is pale warm and dry Objective Last Vital Signs Temp 36.9 C 08/26/23 14:35 Pulse 85 08/26/23 14:35 Resp 18 08/26/23 14:35 BP 155/72 H 08/26/23 14:35 Pulse Ox 91 L 08/26/23 14:35
--- NOTE | 2023-08-27 18:19 | W.PM.PROGNOT ---
Date of Service Date of service: 08/27/23 Time of Service: 18:19 Assessment and Plan Assessment and plan (1) Comfort measures only status: Status: Acute Assessment and plan: Continue CUT OFF SAW OPERATOR orders and interventions Scheduled lorazepam 1 mg Q12 and PRN Morphine drip at 1 mg/hr Family would like records will discuss with CM Discussed with Dr. Calloway (2) Acute CVA (cerebrovascular accident): Status: Acute Assessment and plan: Due the patient's history of GIB , blood thinner for atrial-fibrillation have been discontinued but Mrs Bea morris had a stroke Family suspected that this was present for more than 12 hours before she was brought to the ED for received diagnostics and treatment. [facility] advised that due to her large area of ischemia, her recovery chance is nil. Per ER staff, they recommended comfort measures. Family agreed to this plan to CUT OFF SAW OPERATOR. Terminal extubation performed in the ED by staff on 08/26/2023 Placed on low dose morphine drip at 0.5 mg/hr for patient comfort initially Frowning today when see, holding on to her daughter's hands when the daughter wants to move, not opening her eyes Alternative to admission discussed with family on 08/26/2023 but family is unable to care for her in her very debilitated state. They do not feel she would be safe returning to [facility] either. (3) Acute right MCA stroke: Status: Acute (4) Altered mental state: Status: Acute (5) Dementia: Status: Chronic (6) Atrial fibrillation: Status: Chronic (7) Embolic stroke: Status: Acute (8) retirement resident: Status: Acute (9) Fracture of left hip: Status: Acute (10) Recurrent gastrointestinal hemorrhage: Status: Acute Subjective Subjective Patient reports: no new complaints, still having pain and other (On CUT OFF SAW OPERATOR); denies diarrhea, vomiting or shortness of breath Exam Narrative Exam Narrative: CUT OFF SAW OPERATOR: frowning Resp: Normal respiratory pattern, speaks in full sentences, unlabored breathing but sighing intermittently , clear lung bilaterally Cardio: regular rhythm, S1, S2, no murmur,no mottling Integumentary: No skin lesions or rash, swollen left wrist-hand Objective Last Vital Signs Temp 36.9 C 08/26/23 14:35 Pulse 85 08/26/23 14:35 Resp 18 08/26/23 14:35 BP 155/72 H 08/26/23 14:35 Pulse Ox 91 L 08/26/23 14:35 Time Spent with Patient Time Spent with Patient: >50 minutes Time was spent: preparing to see the patient(eg.review tests), obtaining and/or reviewing separately otained hiistory, ordering medications,tests, procedures, referring, communicating with other health daycare director, indepentently interpreting results, counseling the patient and care coordination
[2023-08-27] MEDS: LORazepam 2 MG/ML VIAL 1 MG IVP (19:42)
[2023-08-28] MEDS: Normal Saline Flush 10 ML SYR IVP ×2 (06:12→18:54)
[2023-08-28] MEDS: LORazepam 2 MG/ML VIAL 1 MG IVP ×3 (06:13→18:55)
--- NOTE | 2023-08-28 10:13 | W.PM.PROGNOT ---
Date of Service Date of service: 08/28/23 Time of Service: 10:13 Assessment and Plan Assessment and plan (1) Comfort measures only status: Status: Acute Assessment and plan: Continue APPLICATIONS INSTRUCTOR orders and interventions Continue scheduled lorazepam 1 mg Q12 and PRN and Morphine drip at 1 mg/hr Family will meet with CM re: access to medical records from admission Discussed with Dr. Calloway (2) Acute CVA (cerebrovascular accident): Status: Acute Assessment and plan: No change in previous notes where the decision and intiation of APPLICATIONS INSTRUCTOR was done as explained in prior notes and below. -Hx of A-fib with Stroke s/p blood thinner discontinuation d/t GIB -[place] with [facility] [place] APPLICATIONS INSTRUCTOR decision by family with terminal extubation in ED BLOCK PLACER to floor -Alternatives discussed: Unable to take care of tthe patient at home and return to [facility] voiced as unsafe by family (3) Acute right MCA stroke: Status: Acute (4) Altered mental state: Status: Acute (5) Dementia: Status: Chronic (6) Atrial fibrillation: Status: Chronic (7) Embolic stroke: Status: Acute (8) [facility] resident: Status: Acute (9) Fracture of left hip: Status: Acute (10) Recurrent gastrointestinal hemorrhage: Status: Acute Subjective Subjective Patient reports: other (On APPLICATIONS INSTRUCTOR: Family reports no distress and adequate pain management; also reports no further signs of discomfort) Exam Narrative Exam Narrative: APPLICATIONS INSTRUCTOR: Relaxed facial muscle, no acute distress Resp: Normal respiratory pattern, unlabored breathing, shallow Cardio: regular rhythm,no mottling, cap refill> 4 sec Integumentary: No skin lesions or rash, swollen left wrist-hand Objective Last Vital Signs Temp 36.9 C 08/26/23 14:35 Pulse 85 08/26/23 14:35 Resp 18 08/26/23 14:35 BP 155/72 H 08/26/23 14:35 Pulse Ox 91 L 08/26/23 14:35 Time Spent with Patient Time Spent with Patient: >50 minutes Time was spent: preparing to see the patient(eg.review tests), obtaining and/or reviewing separately otained hiistory, ordering medications,tests, procedures, referring, communicating with other health wound care coordinator, indepentently interpreting results, counseling the patient and care coordination
[2023-08-28 18:52] VITALS: PULSE 80; RESP 18; TEMP 36.5
[2023-08-29 03:10] VITALS: RESP 20
--- NOTE | 2023-08-29 10:00 | W.PM.PROGNOT ---
Date of Service Date of service: 08/29/23 Time of Service: 10:00 Assessment and Plan Assessment and plan (1) Comfort measures only status: Status: Acute Assessment and plan: Continue REFINERY OPERATOR CRUDE UNIT orders and interventions Continue scheduled lorazepam 1 mg Q12 and PRN, dosing seems to be effective.Morphine drip at 1 mg/hr but could be increased if air hunger develops. a Discussed with Dr. Calloway (2) Acute CVA (cerebrovascular accident): Status: Acute Assessment and plan: No change in previous notes where the decision and intiation of REFINERY OPERATOR CRUDE UNIT was done as explained in prior notes and below. -Stroke s/p blood thinner discontinuation d/t GIB;Hx of A-fib with blood thinner -Consultion in the ED with [facility] and REFINERY OPERATOR CRUDE UNIT decision by family with terminal extubation in ED staff FIRE SUPERVISOR to floor -Alternatives discussed:non-viable option to take care of the patient at home , and family felt that return to NH was unsafe by family (3) Acute right MCA stroke: Status: Acute (4) Altered mental state: Status: Acute (5) Dementia: Status: Chronic (6) Atrial fibrillation: Status: Chronic (7) Embolic stroke: Status: Acute (8) skilled nursing resident: Status: Acute (9) Fracture of left hip: Status: Acute (10) Recurrent gastrointestinal hemorrhage: Status: Acute Subjective Subjective Patient reports: other (On REFINERY OPERATOR CRUDE UNIT, patient shows no S&S of discomfort. Family not at beside when seen) Exam Narrative Exam Narrative: REFINERY OPERATOR CRUDE UNIT: No frowning, rigidity or spasms Resp: clear lung bilaterally Cardio: regular rhythm, S1, S2, no murmur,no cyanosis or mottling Integumentary: No skin lesions or rash Objective Last Vital Signs Temp 36.5 C 08/28/23 18:52 Pulse 80 08/28/23 18:52 Resp 20 08/29/23 03:10 BP 155/72 H 08/26/23 14:35 Pulse Ox 91 L 08/26/23 14:35 Time Spent with Patient Time Spent with Patient: 35-49 minutes Time was spent: preparing to see the patient(eg.review tests), obtaining and/or reviewing separately otained hiistory, ordering medications,tests, procedures, referring, communicating with other health patient care coordinator, indepentently interpreting results, counseling the patient and care coordination
[2023-08-29] MEDS: LORazepam 2 MG/ML VIAL 1 MG IVP ×3 (13:16→22:38)
[2023-08-29] MEDS: Scopolamine 1 MG/3 DAYS PATCH TD (15:07)
[2023-08-29] MEDS: Normal Saline Flush 10 ML SYR IVP (15:08)
[2023-08-30] MEDS: LORazepam 2 MG/ML VIAL 1 MG IVP ×3 (07:15→19:34)
--- NOTE | 2023-08-30 08:48 | PDOC.CMPRO ---
Date of service: 08/30/23 Time of Service: 08:48 Care Management Progress Note Progress Note Text Progress Note Text: S/O:Bria remains on comfort measures and appears to be comfortable.. Her daughter and granddaughter were visiting when CM met with Bria. They verbalized that Bria has been calm and peaceful. She is currently receiving Morphine via pump at 1mg/hr and Lorazepam 1mg IVP every 12 hours. A: Bria is an 83 year old woman admitted on 08/26/23 fore end of life care P:Bria is on comfort measures and will remain at [facility] for end of life care. CM will follow and support Bria and her family through this difficult process. SDOH(Care Management) Screening Will the Patient Participate in the Screening?: Unable to obtain
--- NOTE | 2023-08-30 11:16 | PGE_ITS ---
Date of Service Date of service: 08/30/23 Time of Service: 11:16 Assessment and Plan Assessment and plan (1) Comfort measures only status: Status: Acute Assessment and plan: Continue RIB KNITTER orders and interventions adjust as needed. will remain here for end of life care Discussed with Dr. Sparks (2) Acute CVA (cerebrovascular accident): Status: Acute Assessment and plan: No change in previous notes where the decision and intiation of RIB KNITTER was done as explained in prior notes and below. -Stroke s/p blood thinner discontinuation d/t GIB;Hx of A-fib with blood thinner -Consultion in the ED with [facility] and RIB KNITTER decision by family with terminal extubation in ED staff MARKET RESEARCH EXECUTIVE to floor -Alternatives discussed:non-viable option to take care of the patient at home , and family felt that return to NH was unsafe by family (3) Acute right MCA stroke: Status: Acute (4) Altered mental state: Status: Acute (5) Dementia: Status: Chronic (6) Atrial fibrillation: Status: Chronic (7) Embolic stroke: Status: Acute (8) senior care resident: Status: Acute (9) Fracture of left hip: Status: Acute (10) Recurrent gastrointestinal hemorrhage: Status: Acute Subjective Subjective Interval history since last seen: patient remains unresponsive with no signs of discomfort. Exam Narrative Exam Narrative: Frail elderly female unresponsive laying in bed no sign of distress respirations are even and unlabored skin is pale warm and dry Objective Last Vital Signs Temp 36.5 C 08/28/23 18:52 Pulse 80 08/28/23 18:52 Resp 20 08/29/23 03:10 BP 155/72 H 08/26/23 14:35 Pulse Ox 91 L 08/26/23 14:35 Time Spent with Patient Time Spent with Patient: <25 minutes Time was spent: preparing to see the patient(eg.review tests)
[2023-08-30] MEDS: Normal Saline Flush 10 ML SYR IVP ×2 (11:24→19:35)
--- NOTE | 2023-08-30 11:28 | NUR.NOTE ---
Nursing Note: Patient is unresponsive in bed. Patient appears comfortable, but breathing is shallow. Family is at bedside. Lorazepam given as ordered for comfort.
[2023-08-31] MEDS: Normal Saline Flush 10 ML SYR IVP (01:00)
[2023-08-31] MEDS: LORazepam 2 MG/ML VIAL 1 MG IVP (01:00)
--- NOTE | 2023-08-31 14:53 | EXPE_ITS ---
Date of service: 08/31/23 Time of Service: 08:00 Discharge Plan Disposition Patient Disposition: Discharge Details Reason For Visit: Right Side MCA Stroke,AMS,Pneumonia Admit Date/Time: 08/26/23 13:28 Admit Provider: Ok Calloway Attending Provider: Ok Calloway Primary Care Provider: Cortes Benitez Hospital Course Hospital Course: This is an 83-year-old female history past medical history significant for atrial fibrillation hypertension dementia residing at [facility] re[facility] who developed an altered mental status transported to [facility] for evaluation found to have a acute right MCA stroke. Palliative care was consulted and decision to admit for comfort measures and end-of-life care to [facility]. She remained on comfort care and did succumb to her CVA. Body released to home designated by family Discharge Data Cause of : CVA - cerebrovascular accident due to cerebral artery occlusion Discharge Date/Time-TO BE ENTERED AT DEPARTURE: 08/31/23 05:40 Discharge Sum: Prov Provider Consults: 08/26/23 12:27 Palliative Care Consult [CONS] Routine Consultation Status:: Contact made by Clarification:: Manage/follow per spec. Reason for consult:: Patient here with large scale right sided stroke, hx of Dementia from health and rehab. Initially full code, now wants to transition to DNR/DNI and comfort measures only. Family at bedside. 08/27/23 18:24 Air Pollution Inspector Consult [CONS] Routine Consultation Status:: Follow-up needed Clarification:: Manage/follow per spec. Reason for consult:: HEAD BAGGAGE PORTER as of 08/25 Discharge Sum: Diag PCOD Cause of : CVA - cerebrovascular accident due to cerebral artery occlusion Contributing Factors (1) Comfort measures only status: (2) Acute CVA (cerebrovascular accident): (3) Acute right MCA stroke: (4) Altered mental state: (5) Dementia: (6) Atrial fibrillation: (7) Embolic stroke: (8) half-way resident: (9) Fracture of left hip: (10) Recurrent gastrointestinal hemorrhage:
== END 2023-08-31 05:40 | disposition expired | DRG 64 ==
LOC: ER 13:27 → MS 14:25
PROVIDERS: Emergency Medicine; Admitting Provider Internal Medicine; Emergency Provider Registered Nurse Emergency; PCP Family Medicine; Visit Provider Internal Medicine
DX: I63.511 Cerebral infarction due to unspecified occlusion or stenosis of right middle cerebral artery (principal); J69.0 Pneumonitis due to inhalation of food and vomit; G81.94 Hemiplegia, unspecified affecting left nondominant side; K92.2 Gastrointestinal hemorrhage, unspecified; I48.20 Chronic atrial fibrillation, unspecified; Z51.5 Encounter for palliative care; Z66 Do not resuscitate; F03.C0 Unspecified dementia, severe, without behavioral disturbance, psychotic disturbance, mood disturbance, and anxiety; M81.0 Age-related osteoporosis without current pathological fracture; I10 Essential (primary) hypertension; E78.00 Pure hypercholesterolemia, unspecified; Z79.899 Other long term (current) drug therapy
CPT/HCPCS: 00123; 31500; 36415; 36416; 51702; 71045; 80053; 82805; 82962; 87040; 87637; 87641; 93005; 96365; 96367; 96375; 96376; 99285; 99291; 70450; 81003; 81015; 83605; 83735; 84484; 85025; 85610; 85730; 87086; 93010; 99222; 99231; 99232; 99233; J0330; J0692; J1170; J1596; J2060; J2270; J2704; J3490